=== PATIENT | male | born 1980 | race African-American/Black ===

== ENCOUNTER 2019-06-27 08:12 | Emergency (ER) | payer SELFPAY ==
[~2019-06-27] VITALS: Ht 180.3 cm; Wt 70.3 kg
[~2019-06-27 08:12] MED LIST: ALBU2.5V8 INH; PRED20TA PO
[2019-06-27 08:20] VITALS: BP 140/76
[2019-06-27] MEDS ORDERED: IPRATRPIUM/ALBUTEROL 0.5/2.5MG 3 ML NEBU. NEB ONE (08:45)
--- NOTE | 2019-06-27 08:49 | PHYS DOC ---
Past Medical History Past Medical History: Asthma, Bronchitis, Other Additional Past Medical Histor: seasonal asthma Past Surgical History: Other Additional Past Surgical Histo: right hand Alcohol Use: Rarely Drug Use: Marijuana Adult General Chief Complaint Chief Complaint: ASTHMA HPI HPI Patient is a 39 year old patient with history of asthma and bronchitis who presents with pain, shortness of breath. Patient complaining of episodes of shortness of breath with productive cough with green mucus since last night and pain in his throat during episodes of cough without fever and chills, chest pain, sick contact, nausea and vomiting. Patient states he does not have inhaler or nebulizer at home. Patient works at a [employer] and quit smoking recently. Review of Systems Review of Systems Constitutional: Denies fever or chills [] Eyes: Denies change in visual acuity, redness, or eye pain [] HENT: Denies nasal congestion or sore throat [] Respiratory: Reports cough and shortness of breath Cardiovascular: No additional information not addressed in HPI [] GI: Denies abdominal pain, nausea, vomiting, bloody stools or diarrhea [] : Denies dysuria or hematuria [] Musculoskeletal: Denies back pain or joint pain [] Integument: Denies rash or skin lesions [] Neurologic: Denies headache, focal weakness or sensory changes [] Endocrine: Denies polyuria or polydipsia [] All other systems were reviewed and found to be within normal limits, except as documented in this note. Current Medications Current Medications Current Medications Medications (Trade) Dose Ordered Sig/Brianna Start Time Stop Time Status Last Admin Dose Admin Albuterol/ Ipratropium (Duoneb) 3 ml 1X ONCE 06/27/19 08:45 06/27/19 08:46 DC 06/27/19 08:44 3 ML Allergies Allergies Allergies Coded Allergies Type Severity Reaction Last Updated Verified Penicillins Allergy Intermediate 07/18/16 Yes sulfamethoxazole Allergy Intermediate 03/20/14 No trimethoprim Allergy Intermediate 03/20/14 No Physical Exam Physical Exam Constitutional: Well developed, well nourished, mild distress, non-toxic appearance. [] HENT: Normocephalic, atraumatic, bilateral external ears normal, oropharynx moist, no oral exudates, nose normal. [] Eyes: PERRLA, EOMI, conjunctiva normal, no discharge. [] Neck: Normal range of motion, no tenderness, supple, no stridor. [] Cardiovascular:Heart rate regular rhythm, no murmur [] Lungs & Thorax: Mild with ink and decrease of air movement bilaterally[] Abdomen: Bowel sounds normal, soft, no tenderness, no masses, no pulsatile masses. [] Skin: Warm, dry, no erythema, no rash. [] Back: No tenderness, no CVA tenderness. [] Extremities: No tenderness, no cyanosis, no clubbing, ROM intact, no edema. [] Neurologic: Alert and oriented X 3, normal motor function, normal sensory function, no focal deficits noted. [] Psychologic: Affect normal, judgement normal, mood normal. [] Current Patient Data Vital Signs Vital Signs Date Time Temp Pulse Resp B/P (MAP) Pulse Ox O2 Delivery O2 Flow Rate FiO2 06/27/19 08:46 95 Room Air 06/27/19 08:20 98.3 107 24 140/76 (97) 98.3 EKG EKG [] Radiology/Procedures Radiology/Procedures [] Course & Med Decision Making Course & Med Decision Making Evaluation of patient in ER showed 39-year-old male patient with history of asthma who quit smoking one week ago presented to ER with complaining of shortness of breath and productive cough since last night. Patient had wheezing that improved with DuoNeb. Plan discharge patient home with diagnose of asthmatic bronchitis. Kirby Disclaimer Kirby Disclaimer This electronic medical record was generated, in whole or in part, using a voice recognition dictation system. Departure Departure Impression: Primary Impression: Acute asthmatic bronchitis Disposition: HOME, SELF-CARE (at 0919) Condition: IMPROVED Referrals: NO PCP (PCP) Patient Instructions: Asthma Attacks, Prevention, Asthma, Acute Bronchospasm Additional Instructions: Drink plenty of liquids Follow-up with your primary care physician in 3-5 days Return to ER if not getting better Scripts Azithromycin (ZITHROMAX) 250 Mg Tablet 250 MG PO as directed for ANTI-BIOTIC, #6 TAB 0 Refills Take 2 pills by mouth for the first day and then Take 1 pill by mouth every 24 hours for the next 4 days Prov: MYAH BATES MD 06/27/19 Benzonatate (TESSALON PERLE) 100 Mg Capsule 1 CAP PO TID for cough, #21 CAP Prov: MYAH ABTES MD 06/27/19 Albuterol Sulfate (PROAIR HFA INHALER) 8.5 Gm Hfa.aer.ad 2 PUFF IH PRN Q4-6HRS PRN for wheezing for 21 Days, #1 INHALER 0 Refills Prov: MYAH BATES MD 06/27/19 Prednisone (PREDNISONE) 50 Mg Tablet 1 TAB PO DAILY, #5 TAB Prov: MYAH BATES MD 06/27/19 MYAH BATES MD Jun 27, 2019 08:49
[2019-06-27] MEDS ORDERED: BENZ100C PO (09:23)
[2019-06-27] MEDS ORDERED: PRED50TA PO (09:23)
[2019-06-27] MEDS ORDERED: ALBU2.5V8 IH (09:23)
[2019-06-27] MEDS ORDERED: AZIT250T PO (09:23)
== END 2019-06-27 09:37 | disposition home or self-care (01) ==
LOC: ER 08:12
DX: J45.909 Unspecified asthma, uncomplicated (principal); Z88.0 Allergy status to penicillin; Z88.1 Allergy status to other antibiotic agents; Z88.2 Allergy status to sulfonamides
CPT/HCPCS: 94640; 99283; J7620

== ENCOUNTER 2021-03-13 08:47 | Emergency (ER) | payer SELFPAY ==
[~2021-03-13] VITALS: Ht 180.3 cm; Wt 75.0 kg
[~2021-03-13 08:47] MED LIST changes: +ALBU2.5V8 IH; +AZIT250T PO; +BENZ100C PO; +PRED50TA PO
[2021-03-13 08:58] VITALS: BP 149/87
[2021-03-13] MEDS ORDERED: CLIN150C16 PO (09:14)
--- NOTE | 2021-03-13 09:14 | PHYS DOC ---
Past Medical History Past Medical History: Asthma, Bronchitis, Other Additional Past Medical Histor: seasonal asthma Past Surgical History: Other Additional Past Surgical Histo: right hand Smoking Status: Never Smoker Alcohol Use: Rarely Drug Use: Marijuana General Adult EDM: Chief Complaint: ABSCESS HPI: HPI: Patient is a 41 year old male who presented to ER for evaluation of an abscess in his right armpit area that been going on for 3 days. Patient denies any fever, no chest pain, no cough, no trouble breathing. Review of Systems: Review of Systems: Constitutional: Denies fever or chills. [] Eyes: Denies change in visual acuity. [] HENT: Denies nasal congestion or sore throat. [] Respiratory: Denies cough or shortness of breath. [] Cardiovascular: Denies chest pain or edema. [] GI: Denies abdominal pain, nausea, vomiting, bloody stools or diarrhea. [] : Denies dysuria. [] Musculoskeletal: Denies back pain or joint pain. [] Integument: Positive for abscess in the right armpit area Neurologic: Denies headache, focal weakness or sensory changes. [] Endocrine: Denies polyuria or polydipsia. [] Lymphatic: Denies swollen glands. [] Psychiatric: Denies depression or anxiety. [] Heart Score: C/O Chest Pain: N/A Risk Factors: Risk Factors: DM, Current or recent (<one month) smoker, HTN, HLP, family history of CAD, obesity. Risk Scores: Score 0 - 3: 2.5% MACE over next 6 weeks - Discharge Home Score 4 - 6: 20.3% MACE over next 6 weeks - Admit for Clinical Observation Score 7 - 10: 72.7% MACE over next 6 weeks - Early Invasive Strategies Current Medications: Current Medications Medications (Trade) Dose Ordered Sig/Brianna Start Time Stop Time Status Last Admin Dose Admin Lidocaine HCl (Lidocaine 1% 20ml Vial) 20 ml 1X ONCE 03/13/21 09:15 03/13/21 09:16 UNV Allergies: Allergies: Allergies Coded Allergies Type Severity Reaction Last Updated Verified Penicillins Allergy Intermediate 07/18/16 Yes sulfamethoxazole Allergy Intermediate 03/20/14 No trimethoprim Allergy Intermediate 03/20/14 No Physical Exam: PE: Constitutional: Well developed, well nourished, no acute distress, non-toxic appearance. [] HENT: Normocephalic, atraumatic, bilateral external ears normal, oropharynx moist, no oral exudates, nose normal. [] Eyes: PERRLA, EOMI, conjunctiva normal, no discharge. [] Neck: Normal range of motion, no tenderness, supple, no stridor. [] Cardiovascular:Heart rate regular rhythm, no murmur [] Lungs & Thorax: Bilateral breath sounds clear to auscultation [] Abdomen: Bowel sounds normal, soft, no tenderness, no masses, no pulsatile masses. [] Skin: Warm, dry, there is a golf ball sized tender indurated abscess in right armpit area Back: No tenderness, no CVA tenderness. [] Extremities: No tenderness, no cyanosis, no clubbing, ROM intact, no edema. [] Neurologic: Alert and oriented X 3, normal motor function, normal sensory function, no focal deficits noted. [] Psychologic: Affect normal, judgement normal, mood normal. [] Current Patient Data: Vital Signs: Vital Signs Date Time Temp Pulse Resp B/P (MAP) Pulse Ox O2 Delivery O2 Flow Rate FiO2 03/13/21 08:58 98.7 71 16 149/87 (97) 99 Room Air 98.7 EKG: EKG: [] Radiology/Procedures: Radiology/Procedures: Indication: abscess Procedure: The patient was positioned appropriately. Local anesthesia was 80ML 1% lidocaine plain. An incision was then made over the apex of the lesion using a #11 scalpel and large amount of purulent material was expressed. The drainage cavity was irrigated . The patients tetanus status updated as needed. The patient tolerated the procedure well. Complications: none. Course & Med Decision Making: Course & Med Decision Making Pertinent Labs and Imaging studies reviewed. (See chart for details) [] Dragon Disclaimer: Dragon Disclaimer: This electronic medical record was generated, in whole or in part, using a voice recognition dictation system. Departure Departure Impression: Primary Impression: Cutaneous abscess of right axilla Disposition: HOME / SELF CARE / HOMELESS Condition: STABLE Referrals: NO PCP (PCP) Please follow up with [facility] this week. [address], [address] [place] [address] Phone number: [phone] Patient Instructions: Abscess, Abscess, Care After Additional Instructions: Thank you for visiting our Emergency Department. We appreciate you trusting us with your care. If any additional problems come up don't hesitate to return to visit us. Please follow up with your primary care provider so they can plan additional care if needed and know about the problem that you had. If symptoms worsen come back to the Emergency Department. Any concerning symptoms that start such as chest pain, shortness of air, weakness or numbness on one side of the body, running high fevers or any other concerning symptoms return to the ER. Scripts Clindamycin Hcl (CLINDAMYCIN HCL) 150 Mg Capsule 2 CAP PO QID for 7 Days, #56 CAP Prov: SEBASTIAN FREDERICK DO 03/13/21 SEBASTIAN FREDERICK DO Mar 13, 2021 09:14
[2021-03-13] MEDS ORDERED: LIDOCAINE 1% Multi-Dose 20 ML VIAL. INJ ONE (09:15)
== END 2021-03-13 09:30 | disposition home or self-care (01) ==
LOC: ER 08:47
DX: L02.411 Cutaneous abscess of right axilla (principal); J45.909 Unspecified asthma, uncomplicated; Z88.0 Allergy status to penicillin; Z88.2 Allergy status to sulfonamides; Z88.1 Allergy status to other antibiotic agents
CPT/HCPCS: 10060; 99283; J3490

== ENCOUNTER 2021-04-06 14:33 | Emergency (ER) | payer SELFPAY ==
[~2021-04-06] VITALS: Ht 177.8 cm; Wt 71.5 kg
[~2021-04-06 14:33] MED LIST changes: +CLIN150C16 PO
[2021-04-06 15:45] VITALS: BP 142/89
[2021-04-06 16:03] LABS: BILIRUBIN,URINE NEGATIVE (NEG); CLARITY,URINE CLEAR; COLOR,URINE YELLOW; NITRITE,URINE NEGATIVE (NEG); PH,URINE 5.5 (<5.0-8.0); PROTEIN,URINE NEGATIVE (NEG-TRACE); UROBILINOGEN,URINE 0.2 mg/dL (0.2 mg/dL)
--- NOTE | 2021-04-06 16:04 | PHYS DOC ---
Past Medical History Past Medical History: Asthma, Bronchitis, Other Additional Past Medical Histor: seasonal asthma Past Surgical History: No Surgical History, Other Additional Past Surgical Histo: right hand Smoking Status: Never Smoker Alcohol Use: Rarely Drug Use: Marijuana General Adult EDM: Chief Complaint: SEXUALLY TRANSMITTED DISEASE Problems: (1) STD exposure HPI: HPI: Patient is a 41 year old male who presents with reports of a positive STI test 1 week ago. Patient states that his previous partner called him and told him about her positive results, so he went and got tested himself. He reports that they called him with a positive test result for trichomoniasis and chlamydia. He has not received treatment thus far and does not have the results report available. Patient denies any genitourinary symptoms, including lesions, dysuria, discharge, and hematuria, now or prior to testing. Patient has no other complaints Review of Systems: Review of Systems: Constitutional: Denies fever or chills. Eyes: Denies change in visual acuity. HENT: Denies nasal congestion or sore throat. Respiratory: Denies cough or shortness of breath. Cardiovascular: Denies chest pain or edema. GI: Denies abdominal pain, nausea, vomiting, bloody stools or diarrhea. : See HPI Musculoskeletal: Denies back pain or joint pain. Integument: Denies rash. Neurologic: Denies headache, focal weakness or sensory changes. Heart Score: C/O Chest Pain: No Allergies: Allergies: Allergies Coded Allergies Type Severity Reaction Last Updated Verified Penicillins Allergy Intermediate 07/18/16 Yes sulfamethoxazole Allergy Intermediate 03/20/14 No trimethoprim Allergy Intermediate 03/20/14 No Physical Exam: PE: Constitutional: Well developed, well nourished, no acute distress, non-toxic appearance. Cardiovascular:Heart rate regular rhythm, no murmur. Lungs & Thorax: Bilateral breath sounds clear to auscultation. Abdomen: Bowel sounds normal, soft, no tenderness, no masses, no pulsatile masses. Genitourinary: Skin is without rash, chancres, or vessicles. Pubic hair shows no nits or abnormal growth pattern. Tesicles are distended and nonerythematous, nonedematous. Penis is circumcised without rash, chancres or vessicles. Small amount of milky discharge expressed from urethral meatus. Skin: Warm, dry, no erythema, no rash. Current Patient Data: Labs: Laboratory Tests Test 04/06/21 15:56 Urine Collection Type Unknown Urine Color Yellow Urine Clarity Clear Urine pH 5.5 (<5.0-8.0) Urine Specific [place] >=1.030 (1.000-1.030) Urine Protein Negative mg/dL (NEG-TRACE) Urine Glucose (UA) Negative mg/dL (NEG) Urine Ketones (Stick) Negative mg/dL (NEG) Urine Blood Negative (NEG) Urine Nitrite Negative (NEG) Urine Bilirubin Negative (NEG) Urine Urobilinogen Dipstick 0.2 mg/dL (0.2 mg/dL) Urine Leukocyte Esterase Negative (NEG) Urine RBC Rare /HPF (0-2) Urine WBC 1-4 /HPF (0-4) Urine Squamous Epithelial Cells Mod /LPF Urine Bacteria 0 /HPF (0-FEW) Urine Mucus Marked /LPF Vital Signs: Vital Signs Date Time Temp Pulse Resp B/P (MAP) Pulse Ox O2 Delivery O2 Flow Rate FiO2 04/06/21 15:45 98.6 82 18 142/89 (106) 97 98.6 Course & Med Decision Making: Course & Med Decision Making Pertinent Labs and Imaging studies reviewed. (See chart for details) Because patient had no available test result report, urine will be tested for gonorrhea, chlamydia as well as a UA with microscopy to check for trichomoniasis infection. He will be treated for reported positive results. Patient was offered serology testing for syphilis and herpes simplex, but declined. He will receive 500 IM Rocephin as well as prescription at home for doxycycline and metronidazole. Metronidazole will be given for 7 day course vs 1x due to patient reportedly having trichomoniasis previously. Patient is agreeable to plan. Kirby Disclaimer: Kirby Disclaimer: This electronic medical record was generated, in whole or in part, using a voice recognition dictation system. Departure Departure Impression: Primary Impression: Chlamydial infection Additional Impression: Trichomoniasis Disposition: 01 HOME / SELF CARE / HOMELESS Condition: STABLE Referrals: NO PCP (PCP) Patient Instructions: Sexually Transmitted Disease, [id number] Scripts Metronidazole (METRONIDAZOLE) 500 Mg Tablet 1 TAB PO BID for 7 Days, #14 TAB 0 Refills Take 1 tablet by mouth twice daily for 7 days. Please be sure to finish full course of antibiotics. Refrain from alcohol use while taking this medication. Prov: ARIANA JOHNSON 04/06/21 Doxycycline Monohydrate (DOXYCYCLINE MONOHYDRATE) 100 Mg Capsule 1 CAP PO BID for 7 Days, #14 CAP Take 1 capsule by mouth twice a day for 7 days. Please be sure to finish full course of antibiotics. Prov: ARIANA JOHNSON 04/06/21 ARIANA JOHNSON Apr 06, 2021 16:04
[2021-04-06 16:12] LABS: BACTERIA,URINE 0 /HPF (0-FEW); RBC,URINE RARE /HPF (0-2)
[2021-04-06] MEDS ORDERED: DOXY-181 PO (16:14)
[2021-04-06] MEDS ORDERED: METR-34 PO (16:14)
[2021-04-06] MEDS ORDERED: cefTRIAXone IM 500 MG VIAL. IM ONE (16:15)
== END 2021-04-06 16:50 | disposition home or self-care (01) ==
LOC: ER 14:33
DX: A74.9 Chlamydial infection, unspecified (principal); A59.9 Trichomoniasis, unspecified; J45.909 Unspecified asthma, uncomplicated; Z88.0 Allergy status to penicillin; Z88.1 Allergy status to other antibiotic agents; Z88.2 Allergy status to sulfonamides
CPT/HCPCS: 81001; 87491; 87591; 96372; 99283; J0696

== ENCOUNTER 2021-08-30 18:59 | Emergency (ER) | payer SELFPAY ==
[~2021-08-30] VITALS: Ht 180.3 cm; Wt 71.0 kg
[~2021-08-30 18:59] MED LIST changes: +DOXY-181 PO; +METR-34 PO
[2021-08-30 19:31] LABS: BILIRUBIN,URINE NEGATIVE (NEG); CLARITY,URINE CLOUDY; COLOR,URINE YELLOW; NITRITE,URINE NEGATIVE (NEG); PROTEIN,URINE NEGATIVE (NEG-TRACE); UROBILINOGEN,URINE 0.2 mg/dL (0.2 mg/dL)
[2021-08-30 19:38] LABS: BACTERIA,URINE 0 /HPF (0-FEW); WBC,URINE RARE /HPF (0-4)
[2021-08-30] MEDS ORDERED: DOXY100T PO (19:51)
--- NOTE | 2021-08-30 19:52 | PHYS DOC ---
Past Medical History Past Medical History: Asthma, Bronchitis, Other Additional Past Medical Histor: seasonal asthma Past Surgical History: Other Additional Past Surgical Histo: right hand Smoking Status: Never Smoker Alcohol Use: None Drug Use: Marijuana General Adult EDM: Chief Complaint: SEXUALLY TRANSMITTED DISEASE HPI: HPI: Patient is a 41-year-old male who presents to the emergency department today for an STD check. Patient reports that his sexual partner told him that she had trichomonas and chlamydia and needed to be tested and treated. Patient denies any current symptoms. He denies urethral discharge, dysuria, urinary frequency or urgency, nausea, vomiting, fevers, penile lesions, abdominal pain. Review of Systems: Review of Systems: Constitutional: negative unless reported in HPI Eyes: negative unless reported in HPI HENT: negative unless reported in HPI Respiratory: negative unless reported in HPI Cardiovascular: negative unless reported in HPI GI: negative unless reported in HPI : negative unless reported in HPI Musculoskeletal: negative unless reported in HPI Integument: negative unless reported in HPI Neurologic: negative unless reported in HPI Endocrine: negative unless reported in HPI Lymphatic: negative unless reported in HPI Psychiatric: negative unless reported in HPI Heart Score: C/O Chest Pain: N/A Risk Factors: Risk Factors: DM, Current or recent (<one month) smoker, HTN, HLP, family history of CAD, obesity. Risk Scores: Score 0 - 3: 2.5% MACE over next 6 weeks - Discharge Home Score 4 - 6: 20.3% MACE over next 6 weeks - Admit for Clinical Observation Score 7 - 10: 72.7% MACE over next 6 weeks - Early Invasive Strategies Allergies: Allergies: Allergies Coded Allergies Type Severity Reaction Last Updated Verified Penicillins Allergy Intermediate 07/18/16 Yes sulfamethoxazole Allergy Intermediate 03/20/14 No trimethoprim Allergy Intermediate 03/20/14 No Physical Exam: PE: Constitutional: Well developed, well nourished, no acute distress, non-toxic appearance. [] HENT: Normocephalic, atraumatic, bilateral external ears normal, oropharynx moist, no oral exudates, nose normal. [] Eyes: PERRL, EOMI, conjunctiva normal, no discharge. [] Neck: Normal range of motion, no stridor Cardiovascular: Peripheral perfusion Lungs & Thorax: No work of breathing, no tachypnea Abdomen: Soft and flat Skin: Warm, dry, no erythema, no rash. [] Back: Normal range of motion Extremities: No tenderness, no cyanosis, no clubbing, ROM intact, no edema. [] Neurologic: Alert and oriented X 3, normal motor function, normal sensory function, no focal deficits noted. [] Psychologic: Affect normal, judgement normal, mood normal. [] Current Patient Data: Labs: Laboratory Tests Test 08/30/21 19:23 Urine Collection Type Unknown Urine Color Yellow Urine Clarity Cloudy Urine pH 7.0 (<5.0-8.0) Urine Specific [place] 1.025 (1.000-1.030) Urine Protein Negative mg/dL (NEG-TRACE) Urine Glucose (UA) Negative mg/dL (NEG) Urine Ketones (Stick) Negative mg/dL (NEG) Urine Blood Negative (NEG) Urine Nitrite Negative (NEG) Urine Bilirubin Negative (NEG) Urine Urobilinogen Dipstick 0.2 mg/dL (0.2 mg/dL) Urine Leukocyte Esterase Negative (NEG) Urine RBC 1-2 /HPF (0-2) Urine WBC Rare /HPF (0-4) Urine Squamous Epithelial Cells Few /LPF Urine Bacteria 0 /HPF (0-FEW) Urine Mucus Slight /LPF Vital Signs: Vital Signs Date Time Temp Pulse Resp B/P (MAP) Pulse Ox O2 Delivery O2 Flow Rate FiO2 08/30/21 19:00 98.1 91 20 156/71 (99) 97 Room Air 98.1 EKG: EKG: [] Radiology/Procedures: Radiology/Procedures: [] Course & Med Decision Making: Course & Med Decision Making Pertinent Labs and Imaging studies reviewed. (See chart for details) [] Patient presents to the emergency department after an STD exposure. Patient reports that his sexual partner told her him that she had trichomonas and chlamydia. Patient would like to be tested and prophylactically treated. Urinalysis was negative. Patient was tested for gonorrhea, chlamydia and trichomonas and will be notified of those results when they become available in approximately 1 to 2 days. He will also be prophylactically treated for these STIs. Patient advised to avoid sexual intercourse for 14 days. I discussed with patient all findings as well as the need to follow-up with PCP for further evaluation and treatment or return to the ER if any new or worsening symptoms. Strict return precautions were also discussed at length. Patient voiced understanding and agreement with the plan. Patient is hemodynamically stable at the time of disposition. Dragon Disclaimer: Dragon Disclaimer: This electronic medical record was generated, in whole or in part, using a voice recognition dictation system. Departure Departure Impression: Primary Impression: STD exposure Disposition: HOME / SELF CARE / HOMELESS Condition: GOOD Referrals: NO PCP (PCP) Patient Instructions: Sexually Transmitted Disease Additional Instructions: You were seen in the emergency department after an STI exposure. We tested you for gonorrhea, chlamydia and trichomonas. You will be notified of those results when they become available in approximately 2 days. You were prophylactically treated for these STIs in the emergency department. Please avoid any sexual intercourse for 2 weeks. You were prophylactically treated for these STIs in the emergency department. Once you receive your results, please notify your sexual partners as needed. Return to the emergency department if you develop any signs of STIs, urethral discharge, dysuria, intractable nausea or vomiting, high fevers refractory to treatment, abdominal pain. Scripts Doxycycline Hyclate (DOXYCYCLINE HYCLATE) 100 Mg Tablet 1 TAB PO BID for 7 Days, #14 TAB 0 Refills Prov: ARMINDA WAITE APRN 08/30/21 ARMINDA WAITE APRN Aug 30, 2021 19:52
[2021-08-30] MEDS ORDERED: DOXYCYCLINE HYCLATE 100 MG TABLET PO ONE (20:00)
[2021-08-30] MEDS ORDERED: cefTRIAXone IM 500 MG VIAL. IM ONE (20:00)
[2021-08-30 20:30] VITALS: BP 125/74
== END 2021-08-30 20:40 | disposition home or self-care (01) ==
LOC: ER 18:59
DX: Z20.2 Contact with and (suspected) exposure to infections with a predominantly sexual mode of transmission (principal); J45.909 Unspecified asthma, uncomplicated; Z88.0 Allergy status to penicillin; Z88.1 Allergy status to other antibiotic agents; Z88.2 Allergy status to sulfonamides
CPT/HCPCS: 81001; 87491; 87591; 96372; 99283; J0696